=== PATIENT | male | born 1950 | race African-American/Black ===

== ENCOUNTER 2017-07-29 17:27 | Emergency (ER) | payer OTHER ==
[~2017-07-29] VITALS: Ht 165.1 cm; Wt 95.3 kg
[~2017-07-29 17:27] MED LIST: ALEVE220 MG; AMOXICILLIN 50500 M1 PO; APAP/CODEINE ELI5 M1 PO; AUGMENTIN 875875 MG PO; CORTISONE ACETA25 MG PO; DEPO-TESTO200 MG/1 M IM; IBUPROFEN 600600 M1 PO; KEFLEX500 MG PO; LEVOTHYROXINE0.05 MG PO; MEDROLDOSEPACK PO; NORCO 5-325 TA1 EACH PO; NYQUIL D COLD295 ML; VALIUM2 MG PO; WELLBUTRIN SR150 MG PO; ZANAFLEX4 M2 PO; ZOFRAN ODT4 MG PO; [UNRECOGNIZED DRUG - OTHER]
[2017-07-29] MEDS ORDERED: LIPITOR 10 MG10 M1 PO (18:15)
[2017-07-29] MEDS ORDERED: MOBIC7.5 MG PO (18:15)
[2017-07-29] MEDS ORDERED: LIORESAL 10 MG10 MG PO (18:15)
[2017-07-29 18:34] LABS: ABSOLUTE NEUTROPHILS 2.8 thou/uL (1.4-8.2); BASOPHILS 1.7 % (0.0-2.0); HEMOGLOBIN 14.2 gm/dL (14.0-18.0); LYMPHOCYTES 14.9 % (24.0-44.0); MCH 30.6 pg (26.0-34.0); MCHC 33.8 g/dL (28.0-37.0); MCV 90.6 fL (80.0-100.0); MONOCYTES 3.7 % (1.0-8.0); PLATELET COUNT 129 thou/uL (150-400); POLYS 78.7 % (36.0-66.0); RBC 4.64 mil/uL (4.50-6.00); WBC 3.6 thou/uL (4.0-11.0)
[2017-07-29 18:37] LABS: MANUAL DIFF NO
[2017-07-29 18:40] LABS: CALCIUM 8.7 mg/dL (8.5-10.1); CREATININE 1.2 mg/dL (0.7-1.3); POTASSIUM 3.8 mmol/L (3.5-5.1)
[2017-07-29 18:46] LABS: ALBUMIN 3.7 g/dL (3.4-5.0); DIRECT BILIRUBIN 0.2 mg/dL (<0.1-0.3); TOTAL BILIRUBIN 0.7 mg/dL (<0.1-1.0)
[2017-07-29 19:35] LABS: URINE BILIRUBIN NEGATIVE (Negative); URINE BLOOD NEGATIVE (Negative); URINE COLOR YELLOW; URINE GLUCOSE-RANDOM* NEGATIVE (Negative); URINE KETONES NEGATIVE (Negative); URINE LEUKOCYTES-REFLEX NEGATIVE (Negative); URINE PROTEIN (DIPSTICK) NEGATIVE (Negative); URINE UROBILINOGEN 0.2 E.U./dl (0.2-1.0)
[2017-07-29] MEDS ORDERED: NORCO 5-325 TA1 EACH PO (20:08)
[2017-07-29] MEDS ORDERED: PREDNISONE 20 M20 MG PO (20:08)
[2017-07-29 20:26] VITALS: BP 124/77
== END 2017-07-29 20:27 | disposition home or self-care (01) ==
LOC: ER 17:27
PROVIDERS: Emergency Medicine
DX: M54.5 Low back pain (principal); R10.33 Periumbilical pain; Z87.01 Personal history of pneumonia (recurrent); Z98.890 Other specified postprocedural states; Z88.2 Allergy status to sulfonamides

== ENCOUNTER 2018-09-13 19:39 | Emergency (ER) | payer OTHER ==
[~2018-09-13] VITALS: Ht 165.1 cm; Wt 87.5 kg
[~2018-09-13 19:39] MED LIST changes: +LIORESAL 10 MG10 MG PO; +LIPITOR 10 MG10 M1 PO; +MOBIC7.5 MG PO; +PREDNISONE 20 M20 MG PO
[2018-09-13] MEDS ORDERED: SYNTHROID25 MC1 PO (19:48)
[2018-09-13] MEDS ORDERED: CORTEF 20 MG TA20 M1 PO (19:55)
[2018-09-13] MEDS ORDERED: NORCO 5-325 TA1 EACH PO (21:33)
[2018-09-13] MEDS ORDERED: MOBIC15 MG PO (21:33)
[2018-09-13 22:05] VITALS: BP 118/79
== END 2018-09-13 22:15 | disposition home or self-care (01) ==
LOC: ER 19:39
DX: S10.93XA Contusion of unspecified part of neck, initial encounter (principal); S40.011A Contusion of right shoulder, initial encounter; S80.01XA Contusion of right knee, initial encounter; N40.0 Benign prostatic hyperplasia without lower urinary tract symptoms; Z87.01 Personal history of pneumonia (recurrent); Z88.2 Allergy status to sulfonamides; W00.0XXA Fall on same level due to ice and snow, initial encounter; Y93.89 Activity, other specified; Y92.89 Other specified places as the place of occurrence of the external cause; Y99.8 Other external cause status

== ENCOUNTER 2018-12-18 11:05 | Emergency (ER) | payer OTHER ==
[~2018-12-18] VITALS: Ht 165.1 cm; Wt 86.2 kg
[~2018-12-18 11:05] MED LIST changes: +CORTEF 20 MG TA20 M1 PO; +MOBIC15 MG PO; +SYNTHROID25 MC1 PO
[2018-12-18] MEDS ORDERED: DEPO-TESTO200 MG/1 M IM (11:24)
[2018-12-18 11:43] LABS: HEMATOCRIT 43.6 % (42.0-52.0); HEMOGLOBIN 15.1 gm/dL (14.0-18.0); MCH 31.3 pg (26.0-34.0); MCHC 34.6 g/dL (28.0-37.0); MCV 90.6 fL (80.0-100.0); PLATELET COUNT 136 thou/uL (150-400); RBC 4.82 mil/uL (4.50-6.00); RDW 13.6 % (10.5-14.5); WBC 2.8 thou/uL (4.0-11.0)
[2018-12-18 11:49] LABS: ANION GAP 7 mmol/L (7-16); BUN 10 mg/dL (7-18); CALCIUM 8.5 mg/dL (8.5-10.1); CHLORIDE 102 mmol/L (98-107); CO2 27 mmol/L (21-32); CREATININE 1.2 mg/dL (0.7-1.3); GLUCOSE 97 mg/dL (74-106); POTASSIUM 3.4 mmol/L (3.5-5.1); SODIUM 136 mmol/L (136-145)
[2018-12-18 11:58] LABS: ALBUMIN 3.7 g/dL (3.4-5.0); SGOT 20 U/L (15-37); SGPT 21 U/L (30-65); TOTAL BILIRUBIN 0.9 mg/dL (<0.1-1.0); TROPONIN-I <0.06 ng/mL (<0.06)
[2018-12-18 12:43] LABS: ABSOLUTE NEUTROPHILS 1.9 thou/uL (1.4-8.2)
[2018-12-18 12:44] LABS: ANISOCYTOSIS SLIGHT
[2018-12-18] MEDS ORDERED: SYNTHROID25 MC1 PO (13:17)
[2018-12-18] MEDS ORDERED: PROSCAR 5MG TABL5 MG PO (13:18)
[2018-12-18] MEDS ORDERED: MECLIZINE HCL25 MG PO (13:32)
[2018-12-18] MEDS ORDERED: ONDANSETRON HCL4 M2 PO (13:32)
[2018-12-18 13:41] VITALS: BP 135/85
--- NOTE | 2018-12-20 16:50 | EKG ---
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1950 Requested By: Demian Jj Order Number: [id number] MD: Ran Palacio Measurements Intervals [place] Rate: 47 P: 40 TX: 149 QRS: 41 QRSD: 100 T: 33 QT: 436 QTc: 386 Interpretive Statements Sinus bradycardia Minimal, diffuse ST elevation, consider early repolarization Compared to ECG 07/08/2014 18:36:26 No significant change was found Electronically Signed On 12-20-2018 16:50:06 CDT by Ran Palacio [email or web address] ��������������������������������������������� <ELECTRONICALLY SIGNED> ���������������������������������������� By: Ran Palacio MD, [facility] ��������������������������������������������� 12/20/18 1650 1223 1223 Ran Palacio MD, [facility] /EPI
== END 2018-12-18 13:42 | disposition home or self-care (01) ==
LOC: ER 11:05
PROVIDERS: Physician Assistant
DX: R42 Dizziness and giddiness (principal); R11.2 Nausea with vomiting, unspecified; N40.0 Benign prostatic hyperplasia without lower urinary tract symptoms; G47.30 Sleep apnea, unspecified; Z88.2 Allergy status to sulfonamides; Z87.01 Personal history of pneumonia (recurrent)

== ENCOUNTER 2020-03-08 18:35 | Emergency (ER) | payer OTHER ==
[~2020-03-08] VITALS: Ht 162.6 cm; Wt 95.3 kg
[~2020-03-08 18:35] MED LIST changes: +MECLIZINE HCL25 MG PO; +ONDANSETRON HCL4 M2 PO; +PROSCAR 5MG TABL5 MG PO
[2020-03-08 19:01] LABS: URINE BLOOD 3+ (Negative); URINE GLUCOSE-RANDOM* NEGATIVE (Negative); URINE KETONES 1+ (Negative); URINE PROTEIN (DIPSTICK) 3+ (Negative)
[2020-03-08 19:03] LABS: ICTOTEST (BILI CONFIRMATORY) Negative (Negative); URINE BILIRUBIN NEGATIVE (Negative); URINE CLARITY CLOUDY; URINE COLOR BROWNISH; URINE LEUKOCYTES-REFLEX 1+ (Negative); URINE NITRITE-REFLEX POSITIVE (Negative)
[2020-03-08 19:08] LABS: BACTERIA-REFLEX >30 Many /HPF (None Seen); SQUAMOUS None Seen /LPF (0-3); URINE RBC >20 Many /HPF (0-2)
[2020-03-08 19:09] LABS: CASTS None Seen /LPF (None Seen); CRYSTALS None Seen /LPF (None Seen)
[2020-03-08 19:13] LABS: ABSOLUTE NEUTROPHILS 3.1 thou/uL (1.4-8.2); EOSINOPHILS 0.9 % (0.0-3.0); HEMATOCRIT 48.4 % (42.0-52.0); HEMOGLOBIN 16.4 gm/dL (14.0-18.0); LYMPHOCYTES 25.3 % (24.0-44.0); MCV 91.2 fL (80.0-100.0); MONOCYTES 10.8 % (1.0-8.0); PLATELET COUNT 167 thou/uL (150-400); RBC 5.31 mil/uL (4.50-6.00); RDW 14.6 % (10.5-14.5)
[2020-03-08 19:21] LABS: CALCIUM 9.1 mg/dL (8.5-10.1); POTASSIUM 3.5 mmol/L (3.5-5.1)
[2020-03-08 19:24] LABS: INR 1.1; PROTIME 11.2 Seconds (9.3-11.4)
[2020-03-08 19:25] LABS: TOTAL PROTEIN 7.6 g/dL (6.4-8.2)
[2020-03-08 20:22] VITALS: BP 122/79
[2020-03-08] MEDS ORDERED: CIPROFLOXACIN500 M1 PO (20:33)
== END 2020-03-08 21:11 | disposition home or self-care (01) ==
LOC: ER 18:35
PROVIDERS: Student in an Organized Health Care Education/Training Program
DX: R33.9 Retention of urine, unspecified (principal); N30.81 Other cystitis with hematuria; Z79.899 Other long term (current) drug therapy; Z87.01 Personal history of pneumonia (recurrent)

== ENCOUNTER 2020-03-15 21:23 | Emergency (ER) | payer OTHER ==
[~2020-03-15] VITALS: Ht 165.1 cm; Wt 99.8 kg
[~2020-03-15 21:23] MED LIST changes: +CIPROFLOXACIN500 M1 PO
[2020-03-15 21:39] LABS: URINE BILIRUBIN 2+ (Negative); URINE BLOOD 3+ (Negative); URINE CLARITY CLOUDY; URINE COLOR BROWN; URINE GLUCOSE-RANDOM* NEGATIVE (Negative); URINE KETONES TRACE (Negative); URINE PROTEIN (DIPSTICK) 3+ (Negative)
[2020-03-15 21:55] LABS: SQUAMOUS 0-3 Few /LPF (0-3); URINE LEUKOCYTES-REFLEX 2+ (Negative); URINE NITRITE-REFLEX POSITIVE (Negative); URINE WBC-REFLEX 6-15 Few /HPF (0-5)
[2020-03-15 21:56] LABS: CRYSTALS None Seen /LPF (None Seen); HYALINE CASTS 0-3 Few /LPF (None Seen); MUCUS 4-6 Moderate strn/LPF (None Seen)
[2020-03-15] MEDS ORDERED: FLOMAX0.4 MG PO (21:58)
[2020-03-15 23:12] LABS: ABSOLUTE NEUTROPHILS 3.7 thou/uL (1.4-8.2); BASOPHILS 1.1 % (0.0-2.0); EOSINOPHILS 1.1 % (0.0-3.0); HEMOGLOBIN 14.4 gm/dL (14.0-18.0); LYMPHOCYTES 14.7 % (24.0-44.0); MCH 31.1 pg (26.0-34.0); MCHC 34.3 g/dL (28.0-37.0); MCV 90.7 fL (80.0-100.0); MONOCYTES 10.2 % (1.0-8.0); PLATELET COUNT 157 thou/uL (150-400); POLYS 72.9 % (36.0-66.0); RBC 4.63 mil/uL (4.50-6.00); RDW 14.4 % (10.5-14.5); WBC 5.1 thou/uL (4.0-11.0)
[2020-03-15 23:17] LABS: CALCIUM 8.6 mg/dL (8.5-10.1); CREATININE 2.6 mg/dL (0.7-1.3)
[2020-03-15 23:19] LABS: POTASSIUM 2.8 mmol/L (3.5-5.1)
[2020-03-16] MEDS ORDERED: KEFLEX500 M1 PO (01:05)
[2020-03-16 01:48] VITALS: BP 145/87
[2020-03-16] MEDS ORDERED: NORCO 5-325 TA1 EAC1 PO (01:57)
== END 2020-03-16 02:03 | disposition home or self-care (01) ==
LOC: ER 21:23
PROVIDERS: Emergency Medicine
DX: N17.9 Acute kidney failure, unspecified (principal); R33.9 Retention of urine, unspecified; N39.0 Urinary tract infection, site not specified; E87.6 Hypokalemia; Z88.2 Allergy status to sulfonamides; Z79.899 Other long term (current) drug therapy; Z87.01 Personal history of pneumonia (recurrent)

== ENCOUNTER 2021-04-07 20:39 | Emergency (ER) | payer OTHER ==
[~2021-04-07] VITALS: Ht 165.1 cm; Wt 98.9 kg
[~2021-04-07 20:39] MED LIST changes: +FLOMAX0.4 MG PO; +KEFLEX500 M1 PO; +NORCO 5-325 TA1 EAC1 PO
[2021-04-07 21:28] LABS: ABSOLUTE NEUTROPHILS 4.4 thou/uL (1.4-8.2); BASOPHILS 0.5 % (0.0-2.0); EOSINOPHILS 0.1 % (0.0-3.0); HEMATOCRIT 33.4 % (42.0-52.0); HEMOGLOBIN 11.3 gm/dL (14.0-18.0); LYMPHOCYTES 6.5 % (24.0-44.0); MCH 30.2 pg (26.0-34.0); MCHC 33.7 g/dL (28.0-37.0); MCV 89.4 fL (80.0-100.0); MONOCYTES 5.8 % (1.0-8.0); PLATELET COUNT 132 thou/uL (150-400); POLYS 87.1 % (36.0-66.0); RBC 3.74 mil/uL (4.50-6.00); RDW 15.7 % (10.5-14.5)
[2021-04-07 21:31] LABS: ANION GAP 7 mmol/L (7-16); BUN 29 mg/dL (7-18); CHLORIDE 110 mmol/L (98-107); CO2 26 mmol/L (21-32); CREATININE 2.6 mg/dL (0.7-1.3); GLUCOSE 80 mg/dL (74-106); POTASSIUM 4.1 mmol/L (3.5-5.1); SODIUM 143 mmol/L (136-145)
[2021-04-07] MEDS ORDERED: CARDURA8 MG PO (21:37)
[2021-04-07] MEDS ORDERED: LIPITOR40 MG PO (21:38)
[2021-04-07 21:41] LABS: ALBUMIN 2.9 g/dL (3.4-5.0); DIRECT BILIRUBIN < 0.1 mg/dL (<0.1-0.2); SGOT 21 U/L (15-37); SGPT 27 U/L (16-63); TOTAL BILIRUBIN 0.5 mg/dL (0.2-1.0); TOTAL PROTEIN 5.9 g/dL (6.4-8.2); TROPONIN-I <0.06 ng/mL (<0.06)
[2021-04-07] MEDS ORDERED: LISINOPRIL10 MG PO (21:53)
[2021-04-07 22:36] VITALS: BP 168/95
--- NOTE | 2021-04-08 09:33 | EKG ---
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1950 Requested By: Yennifer Ahumada Order Number: [id number] MD: Waylon Willett Measurements Intervals [facility] Rate: 44 P: 54 PA: 130 QRS: 37 QRSD: 95 T: 64 QT: 425 QTc: 364 Interpretive Statements Sinus bradycardia Borderline T wave abnormalities Compared to ECG 12/18/2018 12:23:29 T-wave abnormality now present ST (T wave) deviation still present Electronically Signed On 04-08-2021 9:32:41 CDT by Waylon Willett [email or web address] <ELECTRONICALLY SIGNED> By: Waylon Willett MD, [facility] 04/08/21931 2118 17 Waylon Willett MD, FACC /EPI
== END 2021-04-07 22:37 | disposition home or self-care (01) ==
LOC: ER 20:39
PROVIDERS: Emergency Medicine
DX: I10 Essential (primary) hypertension (principal); N40.0 Benign prostatic hyperplasia without lower urinary tract symptoms; Z98.890 Other specified postprocedural states; Z79.899 Other long term (current) drug therapy; Z88.2 Allergy status to sulfonamides; Z87.01 Personal history of pneumonia (recurrent)